=== PATIENT | male | born 1990 | race African-American/Black ===

== ENCOUNTER 2022-12-02 12:32 | Outpatient (CLI) | payer OTHER | END 2022-12-02 12:33 | disposition home or self-care (01) | LOC: MRI 12:32 | PROVIDERS: ATTEND Family Medicine Sports Medicine | DX: M25.512 Pain in left shoulder (principal); M75.102 Unspecified rotator cuff tear or rupture of left shoulder, not specified as traumatic; R60.0 Localized edema ==

== ENCOUNTER 2023-07-22 22:09 | Emergency (ER) | payer OTHER ==
[2023-07-22 23:10] LABS: SARS-CoV-2 NAA Rapid Test Not Detected (NotDetected)
== END 2023-07-22 23:33 | disposition home or self-care (01) ==
LOC: ERS 22:09
DX: J06.9 Acute upper respiratory infection, unspecified (principal); Z20.822 Contact with and (suspected) exposure to COVID-19
CPT/HCPCS: 87804; 99283; U0002